=== PATIENT | male | born 1935 | race Caucasian/White ===

== ENCOUNTER → 2020-03-09 | Outpatient (CLI) | payer MEDICARE, OTHER ==
[~2020-03-09] MED LIST: ALPH300C PO; ASCO100018 PO; ASPI325T17 PO; CHOL10003 PO; CURCUMIN PO; ENAL10TA9 PO; LATA2.5D4 EACHEYE; LEVO500T11 PO; METF500T17 PO; NATURE THROID PO; NIAC100035 PO; RED600CA2 PO; SELE200T17 PO; UBID30CA15 PO; VITA40TA PO; VITAMIN B-12 PO; [UNRECOGNIZED DRUG - CODE] PO; [UNRECOGNIZED DRUG - OTHER] EACHEYE
== END | disposition home or self-care (01) ==
LOC: CVU 08:18
PROVIDERS: ATTEND Internal Medicine Cardiovascular Disease
DX: I65.23 Occlusion and stenosis of bilateral carotid arteries (principal); I63.50 Cerebral infarction due to unspecified occlusion or stenosis of unspecified cerebral artery
CPT/HCPCS: 93880